=== PATIENT | female | born 1940 | race Caucasian/White ===

== ENCOUNTER 2025-06-24 13:45 | Inpatient (IN) | payer MEDICARE, SELFPAY ==
[2025-06-24 13:48] VITALS: BP 184/96; PULSE 69; RESP 17; TEMP 37.1; O2SAT 92; BMI 22.3
--- NOTE | 2025-06-24 13:48 | XR_ITS ---
WS: [id number] Exam: XR chest 1V portable [id number] Date/Time of Exam: 06/24/2025 2:02 PM Reason For Exam: presurgical workup No priors. The lungs are fully expanded and clear. Normal cardiomediastinal silhouette for technique. Bony structures are intact. XR/XR chest 1V portable [id number] IMPRESSION: 1. No acute cardiopulmonary finding.
--- NOTE | 2025-06-24 13:48 | XR_ITS ---
WS: [id number] Exam: XR hip LT 2-3V wo/w pel* [id number] Date/Time of Exam: 06/24/2025 2:03 PM Reason For Exam: fall, left hip pain. with pelvis Comminuted intertrochanteric fracture of the LEFT hip noted with coxa vera deformity. Moderate degenerative narrowing of the joint compartment. Normal soft tissues. The pelvis is intact as visualized. XR/XR hip LT 2-3V wo/w pel* [id number] IMPRESSION: 1. Comminuted intertrochanteric fracture of the LEFT hip with coxa vera deformi ty.
--- NOTE | 2025-06-24 13:48 | ECG_ITS ---
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: : 1940 Requested By: Asiya Bravo Order Number: [id number] MD: LIBBY LUIS Measurements Intervals [place] Rate: 76 P: 42 MS: 185 QRS: -34 QRSD: 110 T: 2 QT: 424 QTc: 479 Interpretive Statements SINUS RHYTHM LEFT AXIS DEVIATION [QRS AXIS < -30] LEFT VENTRICULAR HYPERTROPHY AND ST-T CHANGE [VOLTAGE CRITERIA PLUS ST/T ABNORMALITY] POSSIBLE ANTERIOR MYOCARDIAL INFARCTION , OF INDETERMINATE AGE [30 ms Q WAVE IN V3/V4, OR R < 0.2 mV IN V4] No previous ECG available for comparison Electronically Signed On 06-26-2025 21:36:27 CDT by LIBBY LUIS [email or web address]
--- NOTE | 2025-06-24 13:48 | W.ED.FALL ---
HPI - Fall General: Chief Complaint: Extremity Injury, Lower Stated Complaint: FALL Time Seen by Provider: 06/24/25 13:46 History of Present Illness: 85-year-old female who presents to the emergency room by ambulance from home with left hip pain after a fall during the night. She tripped and fell. She was not able to get up and family found her this afternoon. No head injury. No anticoagulation. No loss of consciousness. No neck pain. No chest pain. No abdominal pain. She says she is kind of sore all over from when she twisted when she fell. She has obvious shortening and rotation of the left leg with pain with any movement. She was recently diagnosed with COVID. She is currently on Bactrim and dexamethasone. Related Data Home Medications ?Medication ?Instructions ?Recorded ?Confirmed Arnica [place] 30x 2 tab PO Q6H PRN Pain 06/24/25 06/24/25 Arnicare Pain Reliver 2 tab PO Q6H PRN Pain 06/24/25 06/24/25 albuterol sulfate 90 mcg/actuation 2 puff inhalation Q6H PRN 06/24/25 06/24/25 aerosol inhaler Shortness Of Breath dexamethasone 4 mg tablet 4 mg PO DAILY x5d 06/24/25 06/24/25 sulfamethoxazole 800 1 tab PO BID 06/24/25 06/24/25 mg-trimethoprim 160 mg tablet (Bactrim DS) Allergies Allergy/AdvReac Type Severity Reaction Status Date / Time No Known Allergies Allergy Verified 06/24/25 14:20 Review of Systems Narrative: Constitutional symptoms: Negative except as documented in HPI. Skin symptoms: Negative except as documented in HPI. Eye symptoms: Negative except as documented in HPI. ENMT symptoms: Negative except as documented in HPI. Respiratory symptoms: Negative except as documented in HPI. Cardiovascular symptoms: Negative except as documented in HPI. Gastrointestinal symptoms: Negative except as documented in HPI. Genitourinary symptoms: Negative except as documented in HPI. Musculoskeletal symptoms: Negative except as documented in HPI. Neurologic symptoms: Negative except as documented in HPI. Psychiatric symptoms: Negative except as documented in HPI. Endocrine symptoms: Negative except as documented in HPI. Physical Exam Narrative: EXAM NARRATIVE: General: Alert, no acute distress. Skin: Warm, dry. Head: Normocephalic, atraumatic. Neck: Supple, trachea midline. Eye: Extraocular movements are intact. Ears, nose, mouth and throat: mucosa moist. Cardiovascular: Regular, Normal peripheral perfusion. Respiratory: Lungs are clear to auscultation, respirations are non-labored, breath sounds are equal, Symmetrical chest wall expansion. Gastrointestinal: Soft, Nontender, Non distended Musculoskeletal: Shortening and outward rotation of the left leg with pain at the hip with any movement. Neurological: Alert and oriented, No focal neurological deficit observed. Psychiatric: Cooperative, appropriate mood & affect. Course Vital Signs: Vital signs: Vital Signs Temperature 98.8 F 06/24/25 13:48 Pulse Rate 69 06/24/25 13:48 Respiratory Rate 19 H 06/24/25 14:36 Blood Pressure 184/96 06/24/25 13:48 Pulse Oximetry 96 06/24/25 14:36 Oxygen Delivery Me thod Room Air 06/24/25 13:48 MDM - Fall Medical Decision Making Medical decision making: Differential diagnosis for patient with fall and hip pain with deformity including but not limited to and based on the above HPI, review of systems and physical exam: Hip fracture, femur fracture, pelvic fractures including pubic rami and acetabular fractures, hip strain, hip contusion. - Workup: - Hip films ordered to evaluate above. - also presurgical work up done. EKG, Chest xray and lab work Chest x-ray: No acute process. No infiltrate. No pneumothorax. This was reviewed and interpreted by myself the emergency room physician. I also reviewed the radiology report. X-ray of the left hip and pelvis: Comminuted intertrochanteric fracture of the left hip. This was reviewed and interpreted by myself the emergency room physician. I also reviewed the radiology report. EKG: Time 1445. Rate 76. Normal sinus rhythm, nonspecific ST changes, no ectopy, normal OH & QRS intervals, This was reviewed and interpreted by myself the ER physician at 1450 Lab Review: Laboratory results were reviewed and interpreted by myself the emergency room physician. No leukocytosis. No anemia. No renal failure. Urinalysis is pending. Consultation: I spoke with Dr. Packer who recommends admission to the hospitalist service. Consultation: I spoke with Dr. Pena who is on-call for the hospitalist service who agrees to admission I reviewed the patient's medical record. Patient has no previous visits to this hospital. Reexamination: Patient remained stable. No increased work of breathing. No altered mental status. No focal motor deficits. Assessment and plan: Hip fracture Fall ?Normal saline bolus, IV morphine, IV Zofran ?Serrano catheter was placed. - Discharged home - Discussed plan with patient. Answered any questions. - Evaluation and treatment of this problem were appropriate in the emergency setting. Lab Data 06/24/25 14:24 06/24/25 14:24 Radiology Impressions Chest X-Ray 06/24/25 13:48 IMPRESSION: 1. No acute cardiopulmonary finding. Hip/Pelvis X-Ray 06/24/25 13:48 IMPRESSION: 1. Comminuted intertrochanteric fracture of the LEFT hip with coxa vera deformity. Laboratory Results WBC 7.17 10^3/uL (3.29-11.43) 06/24/25 14: RBC 4.35 10^6/uL (3.85-5.65) 06/24/25 14:24 Hgb 12.60 g/dL (11.27-16.99) 06/24/25 14:24 Hct 37.6 % (36-47) 06/24/25 14:24 MCV 86.4 fl (85-98) 06/24/25 14:24 MCH 29.0 pg (27-33) 06/24/25 14:24 MCHC 33.5 g/dL (30-55) 06/24/25 14:24 RDW 12.6 % (12.1-15.1) 06/24/25 14:24 Plt Count 185 10^3/cmm (157-399) 06/24/25 14:24 MPV 9.3 fL (7.4-10.4) 06/24/25 14:24 Neut % (Auto) 84.7 % 06/24/25 14:24 Lymph % (Auto) 6.8 % 06/24/25 14:24 [place] % (Auto) 8.1 % 06/24/25 14:24 Eos % (Auto) 0.0 % 06/24/25 14:24 Baso % (Auto) 0.1 % 06/24/25 14:24 Neut # (Auto) 6.07 10^3/uL (1.8-7.7) 06/24/25 14:24 Lymph # (Auto) 0.5 10^3/uL (0.8-4.8) L 06/24/25 14:24 [place] # (Auto) 0.6 10^3/uL (0.2-0.9) 06/24/25 14:24 Eos # (Auto) 0.0 10^3/uL (0.0-0.8) 06/24/25 14:24 Baso # (Auto) 0.0 10^3/uL (0.0-0.1) 06/24/25 14:24 Nucleated RBC % (auto) 0 % 06/24/25 14:24 Nucleated RBCs # 0.0 /100WBC 06/24/25 14:24 PT 13.00 SECONDS (12.1-14.9) 06/24/25 14:24 INR 0.92 (0.8-1.2) 06/24/25 14:24 APTT 25.1 SECONDS (23.9-36.7) 06/24/25 14:24 Sodium 138 mmol/L (136-145) 06/24/25 14:24 Potassium 3.9 mmol/L (3.5-5.1) 06/24/25 14:24 Chloride 102 mmol/L (98-107) 06/24/25 14:24 Carbon Dioxide 24 mmol/L (22-29) 06/24/25 14:24 Anion Gap 15.9 (5-19) 06/24/25 14:24 BUN 19 mg/dL (8-23) 06/24/25 14:24 Creatinine 0.8 mg/dL (0.5-0.9) 06/24/25 14:24 GFR Calculation Not Reportable 06/24/25 14:24 Glucose 143 mg/dL (65-115) H 06/24/25 14:24 Calculated Osmolality 291 mOsm/kg (285-295) 06/24/25 14:24 Calcium 8.4 mg/dL (8.5-10.5) L 06/24/25 14:24 Total Bilirubin 0.5 mg/dL (0.15-1.2) 06/24/25 14:24 AST 27 U/L (0-32) 06/24/25 14:24 ALT 18 U/L (0-33) 06/24/25 14:24 Alkaline Phosphatase 70 U/L (35-105) 06/24/25 14:24 Creatine Kinase 318 U/L (26-192) H 06/24/25 14:24 Total Protein 6.5 g/dL (6.6-8.7) L 06/24/25 14:24 Albumin 3.9 g/dL (3.5-5.2) 06/24/25 14:24 Globulin 2.6 g/dL (1.3-4.6) 06/24/25 14:24 All radiology interpretation(s) finalized by discharge Discharge Plan Discharge Patient Disposition: Admitted As Inpatient Clinical Impression: Closed hip fracture, Fall Condition: Stable Coding Level of Care Code ED Pole Classifier for Elvira Briceño
[2025-06-24 14:32] LABS: Hematocrit 37.6 % (36-47); Hemoglobin 12.60 g/dL (11.27-16.99); Mean Corpuscular HGB Conc 33.5 g/dL (30-55); Mean Corpuscular Hemoglobin 29.0 pg (27-33); Mean Corpuscular Volume 86.4 fl (85-98); Nucleated Red Blood Cells % 0 %; Platelet Count 185 10^3/cmm (157-399); Red Blood Count 4.35 10^6/uL (3.85-5.65); White Blood Count 7.17 10^3/uL (3.29-11.43)
[2025-06-24 14:36] VITALS: RESP 19; O2SAT 96
[2025-06-24] MEDS: morphine 4 mg/mL SDV 1 mL IVP (14:36)
[2025-06-24] MEDS: ondansetron 2 mg/ML SDV 2 mL 4 MG IVP (14:36)
--- NOTE | 2025-06-24 14:40 | PC.PHAR ---
Addendum entered by Joceline Chisholm 06/24/25 14:42: Arnica [place] 30x and Arnicare pain relief are Plant based natural pain relievers that are tablets or pellets containing Croscarmellose Sodium, Lactose, and Magnesium Stearate. Pill cards are in the room with 2 rx bottles and albuterol inhaler. Original Note: Pascual Guthrie Mo states pt has rx for Paxlovid but is uninsured and could not afford to pick it up.
[2025-06-24 14:51] LABS: INR 0.92 (0.8-1.2); Prothrombin Time 13.00 SECONDS (12.1-14.9)
[2025-06-24 14:53] LABS: Partial Thromboplastin Time 25.1 SECONDS (23.9-36.7)
[2025-06-24 14:58] LABS: Alanine Aminotransferase 18 U/L (0-33); Albumin Level 3.9 g/dL (3.5-5.2); Alkaline Phosphatase 70 U/L (35-105); Anion Gap 15.9 (5-19); Aspartate Amino Transferase 27 U/L (0-32); Blood Urea Nitrogen 19 mg/dL (8-23); Calcium 8.4 mg/dL (8.5-10.5); Carbon Dioxide 24 mmol/L (22-29); Chloride 102 mmol/L (98-107); Creatinine Clr Calc Pharmacy 46.6140; Globulin 2.6 g/dL (1.3-4.6); Glucose 143 mg/dL (65-115); Osmolality Calculated 291 mOsm/kg (285-295); Potassium 3.9 mmol/L (3.5-5.1); Sodium 138 mmol/L (136-145); Total Protein 6.5 g/dL (6.6-8.7)
[2025-06-24 15:00] VITALS: BP 166/92; PULSE 70; O2SAT 92
--- NOTE | 2025-06-24 15:14 | PM.HP ---
Providers/Chief Complaint Admitting Physician: Dr. Pena Chief Complaint: FALL History of Present Illness Arcelia Peterson is a 85 year old female presenting after fall with hip fracture. Per son, she has fallen 3 times since Saturday. She was checked out in the ER on the most recent occasion, no fractures. She was found to be COVID positive at that time. Unclear why this was tested. She is asymptomatic. She was started on oral dexamethasone and given bactrim, the son is unclear what infection this was given for. She was offered paxlovid but declined because of expense. On this occasion, she was going to bed and leaned up on the bed, slipped and fell on her hip. Her son examined her and brought her to the ER for possible broken hip which was confirmed on scan. She is admitted for hip fracture currently. Review of Systems Const: Denies: fever(s), chills or body aches Eyes: Denies: change in vision ENMT: Denies: throat pain or mouth pain Card: Denies: chest pain, palpitations or lightheadedness Resp: Denies: dyspnea, productive cough, wheezing or chest congestion GI: Denies: abdominal pain, nausea or vomiting : Denies: flank pain, difficulty voiding, dysuria, urinary frequency or urinary urgency Musc: Reports: extremity pain Skin/Breast: Denies: rash or pruritus Neuro: Denies: headache(s), numbness in extremities or lack of coordination Psych: Denies: anxiety or depression Medications/Allergies Home Medications ?Medication ?Instructions ?Recorded ?Confirmed ?Last Taken ?Type Arnica [place] 30x 2 tab PO Q6H PRN Pain 06/24/25 06/24/25 Unknown History Arnicare Pain Reliver 2 tab PO Q6H PRN Pain 06/24/25 06/24/25 Unknown History albuterol sulfate 90 mcg/actuation 2 puff inhalation Q6H PRN 06/24/25 06/24/25 06/23/25 History aerosol inhaler Shortness Of Breath dexamethasone 4 mg tablet 4 mg PO DAILY x5d 06/24/25 06/24/25 06/23/25 History sulfamethoxazole 800 1 tab PO BID 06/24/25 06/24/25 06/23/25 History mg-trimethoprim 160 mg tablet (Bactrim DS) Allergies Allergy/AdvReac Type Severity Reaction Status Date / Time No Known Allergies Allergy Verified 06/24/25 14:20 PFSH Acute PFSH: Medical History (Updated 06/24/25 @ 15:22 by Óscar Pena MD) Hypertension Stroke Family History (Updated 06/24/25 @ 15:24 by Óscar Pena MD) Mother Stroke Heart disease Father Lymphoma Social History (Updated 06/24/25 @ 15:24 by Óscar Pena MD) Smoking and tobacco/nicotine status: former use of tobacco/nicotine Alcohol intake: current Alcohol intake frequency: 0-2 Drinks per Day Substance/Drug Use: never Vitals/I&O/Wt Last Vital Signs Temp 98.8 F 06/24/25 13:48 Pulse 69 06/24/25 13:48 Resp 19 H 06/24/25 14:36 BP 184/96 06/24/25 13:48 Pulse Ox 96 06/24/25 14:36 O2 Del Method Room Air 06/24/25 13:48 Weight last 48 hrs Weight 58.967 kg Physical Exam Const: COMMON NORMALS: no acute distress, average body habitus and patient oriented x3 HENMT: COMMON NORMALS: normocephalic and atraumatic Eye: COMMON NORMALS: Equal, round and reactive pupils present, EOMs intact bilaterally and no papilledema Neck/C-Spine: COMMON NORMALS: full ROM and no lymphadenopathy Resp: COMMON NORMALS: normal respiratory effort, No retractions and clear to auscultation bilaterally Cardio: COMMON NORMALS: regular rate, regular rhythm, S1 normal heart sound present and S2 normal heart sound present GI: COMMON NORMALS: Soft to palpation, non-tender and No hepatosplenomegaly present Extremity: NARRATIVE EXTREMITY EXAM: left hip reduced ROM 2/2 pain Neuro: COMMON NORMALS: patient oriented x3 and CN's II-XII intact bilaterally Skin: COMMON NORMALS: no rashes or lesions noted, no wounds and turgor normal Urinary Catheter Management: Serrano: Cath Placed During This Visit: yes Urinary Catheter Date of Insertion: 06/24/25 Urinary Catheter Time of Insertion: 14:57 Data 06/24/25 14:24 06/24/25 14:24 A&P Assessment and plan 1. Fall: 2. Closed hip fracture: Plan: 84 year old female presenting with mechanical fall resulting in left hip fracture. Orthopedics consulted. Left hip fracture - mgmt per ortho - pain control - antiemetic Recent covid - found on lab, patient is asymptomatic. - can stop dexamethasone and bactrim - she does not use Oxygen at home, has inhaler on NOV but no history of lung disease, former smoker - cont. supportive treatment as needed. - currently afebrile, no leukocytosis. - UA clear - Chext xray clear HTN - patient not on any medications currently 2/2 multiple allergies and sensitivities. Diet: regular, NPO after midnight for possible procedure PPx: SCDs. AC held for procedure. Disposition - full code - bedrest until cleared by ortho - PT/OT/CM for discharge planning PDMP PDMP Reviewed: Not Reviewed Attestations Medical Necessity Statement*: Anticipate > 2 midnights for hip fracture Time Spent in Patient Care: 16 - 35 minutes (>than 50% of time spent in counselling and/or direct pt care on unit). Coding Level of Care Code Acute Code for Chg Fwd Diagnoses Fall W19.XXXA Closed hip fracture S72.009A
[2025-06-24 15:27] LABS: Glucose Urine UA Negative (Normal); Nitrate Urine Negative (Negative); Specific Gravity, Urine 1.023 (1.005-1.030)
--- NOTE | 2025-06-24 15:32 | PC.NURSE ---
IV PLACED IN LEFT AC BY EMS INFILTRATED. IV REMOVED, PRESSURE DRESSING APPLIED. NEW IV STARTED BY THIS NURSE.
--- NOTE | 2025-06-24 16:35 | PM.CONSULT ---
Providers/Reason For Consult Consulting Physician/Specialty*: Hospitalist Reason for Consult*: Left intertrochanteric hip fracture History of Present Illness History of Present Illness Arcelia Peterson is a 84 year old female with a history of 3 strokes had a fall last night sustained a left intertrochanteric hip fracture. I was consulted to evaluate the hip. Review of Systems Const: Denies: fever(s), chills or body aches Eyes: Denies: change in vision ENMT: Denies: throat pain or mouth pain Card: Denies: chest pain, palpitations or lightheadedness Resp: Denies: dyspnea, productive cough, wheezing or chest congestion GI: Denies: abdominal pain, nausea or vomiting : Denies: flank pain, difficulty voiding, dysuria, urinary frequency or urinary urgency Musc: Reports: extremity pain Skin/Breast: Denies: rash or pruritus Neuro: Denies: headache(s), numbness in extremities or lack of coordination Psych: Denies: anxiety or depression Medications/Allergies Home Medications ?Medication ?Instructions ?Recorded ?Confirmed ?Last Taken ?Type Arnica [place] 30x 2 tab PO Q6H PRN Pain 06/24/25 06/24/25 Unknown History Arnicare Pain Reliver 2 tab PO Q6H PRN Pain 06/24/25 06/24/25 Unknown History albuterol sulfate 90 mcg/actuation 2 puff inhalation Q6H PRN 06/24/25 06/24/25 06/23/25 History aerosol inhaler Shortness Of Breath dexamethasone 4 mg tablet 4 mg PO DAILY x5d 06/24/25 06/24/25 06/23/25 History sulfamethoxazole 800 1 tab PO BID 06/24/25 06/24/25 06/23/25 History mg-trimethoprim 160 mg tablet (Bactrim DS) Allergies Allergy/AdvReac Type Severity Reaction Status Date / Time No Known Allergies Allergy Verified 06/24/25 14:20 PFSH Acute PFSH: Medical History (Updated 06/24/25 @ 15:22 by Óscar Pena MD) Hypertension Stroke Family History (Updated 06/24/25 @ 15:24 by Óscar Pena MD) Mother Stroke Heart disease Father Lymphoma Social History (Updated 06/24/25 @ 15:24 by Óscar Pena MD) Smoking and tobacco/nicotine status: former use of tobacco/nicotine Alcohol intake: current Alcohol intake frequency: 0-2 Drinks per Day Substance/Drug Use: never Vitals/I&O/Wt Last Vital Signs Temp 98.8 F 06/24/25 13:48 Pulse 70 06/24/25 15:00 Resp 19 H 06/24/25 14:36 BP 166/92 06/24/25 15:00 Pulse Ox 92 06/24/25 15:00 O2 Del Method Nasal Cannula 06/24/25 15:00 O2 Flow Rate 2 06/24/25 15:00 Weight last 48 hrs Weight 130 lb Physical Exam Narrative: Alert and oriented x 3 Head is normocephalic atraumatic Respirations are intact No evidence of any rashes or infection Left leg shortened externally rotated Urinary Catheter Management: Serrano: Cath Placed During This Visit: yes Urinary Catheter Date of Insertion: 06/24/25 Urinary Catheter Time of Insertion: 14:57 Data 06/24/25 14:24 06/24/25 14:24 A&P Assessment and plan 1. Closed hip fracture: Patient has a left intertrochanteric hip fracture. Plan at this point is to do a left hip nail tomorrow. PDMP PDMP Reviewed: Not Reviewed Coding Level of Care Code Acute Code for Chg Fwd Diagnoses Closed hip fracture S72.009A
[2025-06-24 16:50] VITALS: BP 165/110; PULSE 70; O2SAT 97
[2025-06-24 17:12] VITALS: BMI 27.9
[2025-06-24 17:26] VITALS: BP 173/92; PULSE 70; RESP 16; TEMP 36.4; O2SAT 93
[2025-06-24 19:42] VITALS: BP 137/78; PULSE 72; RESP 16; TEMP 36.6; O2SAT 92
[2025-06-25] VITALS (17 sets, daily range): BP systolic 108–167; BP diastolic 68–133; PULSE 63–94; RESP 10–21; TEMP 36.4–37; O2SAT 90–99; BMI 27.7
[2025-06-25 04:01] LABS: Hematocrit 34.7 % (36-47); Hemoglobin 11.50 g/dL (11.27-16.99); Mean Corpuscular HGB Conc 33.1 g/dL (30-55); Mean Corpuscular Hemoglobin 29.1 pg (27-33); Mean Corpuscular Volume 87.8 fl (85-98); Nucleated Red Blood Cells % 0 %; Platelet Count 169 10^3/cmm (157-399); Red Blood Count 3.95 10^6/uL (3.85-5.65); White Blood Count 5.78 10^3/uL (3.29-11.43)
[2025-06-25 04:24] LABS: Anion Gap 14.0 (5-19); Blood Urea Nitrogen 22 mg/dL (8-23); Calcium 8.1 mg/dL (8.5-10.5); Carbon Dioxide 25 mmol/L (22-29); Chloride 105 mmol/L (98-107); Creatinine Clr Calc Pharmacy 46.6514; Glucose 102 mg/dL (65-115); Osmolality Calculated 294 mOsm/kg (285-295); Potassium 4.0 mmol/L (3.5-5.1); Sodium 140 mmol/L (136-145)
[2025-06-25] MEDS: HYDROcodone-acetaminophen 5-325 mg Tablet 1 TAB PO (10:41)
--- NOTE | 2025-06-25 11:15 | PC.OT ---
OT evaluation orders received; pt is on hold today due to having hip nail procedure; will attempt OT evaluation again tomorrow.
--- NOTE | 2025-06-25 13:51 | P.PN_ITS ---
Subjective 2 Subjective: No new issues. Vitals/I&O/Wt Last Vital Signs Temp 98.0 F 06/25/25 13:48 Pulse 67 06/25/25 13:48 Resp 18 06/25/25 13:48 BP 130/68 06/25/25 13:48 Pulse Ox 90 06/25/25 13:48 O2 Del Method Room Air 06/25/25 13:48 O2 Flow Rate 2 06/24/25 15:00 06/24/25 06/25/25 06/25/25 22:59 06:59 14:59 Intake Total 1120 / 1120 Output Total 550 / 550 Balance 1120 / 1120 -550 / 570 Weight last 48 hrs Weight 73.255 kg Weight 73.936 kg Weight 58.967 kg Physical Exam 2 Narrative: Physical Exam Const: no acute distress, average body habi tus and patient or iented x3 HENMT: normocephalic and atraumatic Eye: Equal, round and r eactive pupils pre sent, EOMs intact bilaterally Neck/C-Spine: full ROM and no ly mphadenopathy Resp: normal respiratory effort, No retrac tions and clear to auscultation bila terally Cardio: regular rate, regu lar rhythm, S1/S2 normal GI: Soft to palpation, non-tender and No hepatosplenomegal y present Extremity: left hip reduced R OM 2/2 pain Neuro: patient oriented x 3 and CN's II-XII intact bilaterally Skin: no rashes or lesio ns noted, no wound s and turgor tin l Urinary Catheter Management: Serrano: Cath Placed During This Visit: yes Reason for Continuing Indwelling Catheter: Required Immobilization for Trauma or Surgery or Anesthesia Urinary Catheter Date of Insertion: 06/24/25 Urinary Catheter Time of Insertion: 14:57 Data 06/25/25 03:35 06/25/25 03:35 A&P Assessment and plan 1. Closed hip fracture: 2. Fall: Plan: Plan: 84 year old female presenting with mechanical fall resulting in left hip fracture. Orthopedics consulted. Left hip fracture - mgmt per ortho - pain control - antiemetic Recent covid - found on outpatient lab, patient is asymptomatic. - can stop dexamethasone and bactrim - she does not use Oxygen at home, has inhaler on NOV but no history of lung disease, former smoker - cont. supportive treatment as needed. - currently afebrile, no leukocytosis, minimal cough currently. - UA clear - Chest xray clear HTN - patient not on any medications currently 2/2 multiple allergies and sensitivities. Diet: regular, NPO after midnight for possible procedure PPx: SCDs. AC held for procedure. Disposition - full code - bedrest until cleared by ortho - PT/OT/CM for discharge planning PDMP PDMP Reviewed: Not Reviewed Attestations 2 Medical Necessity Statement*: Ongoing inpatient for hip fracture. Time Spent in Patient Care: 16 - 35 minutes (>than 50% of time sp ent in counselling and/or direct pt care on unit) . Coding Level of Care Code Acute Code for [facility] Fwd Diagnoses Closed hip fracture S72.009A Fall W19.XXXA
--- NOTE | 2025-06-25 13:52 | ANES.PREANE2 ---
Pre-Anesthetic Assessment Height/Weight: Height 5 ft 4 in Weight 161 lb 8 oz Temp Pulse Resp BP Pulse Ox O2 Del Method O2 Flow Rate 98.0 F 67 18 130/68 90 Room Air 2 06/25/25 13:48 06/25/25 13:48 06/25/25 13:48 06/25/25 13:48 06/25/25 13:48 06/25/25 13:48 06/24/25 15:00 Preop Diagnosis: Anemia Operation Date: 06/25/25 11:10 Proposed Procedures p Trochanteric Femoral Nail(Left) - Anthony Packer, DO Was Beta Chetna taken within 24 hours: N/A Was Clonidine taken within 24 hours: N/A Last intake: Intake Last Liquid Date 06/24/25 Last Liquid Time 23:50 Last Solid Date 06/24/25 Last Solid Time 17:00 Social No alcohol and No tobacco Exam alert, oriented x 3, clear to auscultation bilaterally and regular rate & rhythm Airway Submandibular: within normal limits Cervical ROM: within normal limits Mallampati: Class III Dentition: full Anesthetic Plan ASA status: 3 Other: Patient experienced hip fracture after falling yesterday. No prior issues with anesthesia Patient has some dementia, patient's son is at bedside and consented Patient was found to be COVID-positive, currently asymptomatic Patient was offered Paxlovid but declined because of expense Labs reviewed from today, hemoglobin 11.5, NA 140, K+ 4.0 Plan for general anesthesia Medications/Allergies Home Medications ?Medication ?Instructions ?Recorded ?Confirmed ?Last Taken ?Type [place] 30x 2 tab PO Q6H PRN Pain 06/24/25 06/24/25 Unknown History [place] Pain Reliver 2 tab PO Q6H PRN Pain 06/24/25 06/24/25 Unknown History albuterol sulfate 90 mcg/actuation 2 puff inhalation Q6H PRN 06/24/25 06/24/25 06/23/25 History aerosol inhaler Shortness Of Breath dexamethasone 4 mg tablet 4 mg PO DAILY x5d 06/24/25 06/24/25 06/23/25 History sulfamethoxazole 800 1 tab PO BID 06/24/25 06/24/25 06/23/25 History mg-trimethoprim 160 mg tablet (Bactrim DS) Allergies Allergy/AdvReac Type Severity Reaction Status Date / Time No Known Allergies Allergy Verified 06/24/25 14:20 Current Medications Generic Name Dose Route Start Last Admin Trade Name Freq PRN Reason Stop Dose Admin Hydrocodone Bitart/Acetaminophen 1 tab 06/24/25 17:11 06/25/25 10:41 Hydrocodone-Acetaminophen 5-325 Mg Tablet PO 1 tab On Hold: 06/25/25 13:45 Q4H PRN Administration Comment: Order held by Process MODERATE TO SEVERE PAIN Transfer [facility] Anesthesia Medical History (Updated 06/24/25 @ 15:22 by Óscar Pena MD) Hypertension Stroke Family History (Updated 06/24/25 @ 15:24 by Óscar Pena MD) Mother Stroke Heart disease Father Lymphoma Social History (Updated 06/24/25 @ 15:24 by Óscar Pena MD) Smoking and tobacco/nicotine status: former use of tobacco/nicotine Alcohol intake: current Alcohol intake frequency: 0-2 Drinks per Day Substance/Drug Use: never Data Anesthesia 06/25/25 03:35 06/25/25 03:35 Short CBC 06/24/25 06/25/25 Range/Units 14:24 03:35 WBC 7.17 5.78 (3.29-11.43) 10^3/uL Hgb 12.60 11.50 (11.27-16.99) g/dL Hct 37.6 34.7 L (36-47) % MCV 86.4 87.8 (85-98) fl Plt Count 185 169 (157-399) 10^3/cmm Neut % (Auto) 84.7 74.7 % Neut # (Auto) 6.07 4.32 (1.8-7.7) 10^3/uL BMP 06/24/25 06/25/25 14:24 03:35 Sodium 138 140 Potassium 3.9 4.0 Chloride 102 105 Carbon Dioxide 24 25 BUN 19 22 Creatinine 0.8 0.9 Glucose 143 H 102 Calcium 8.4 L 8.1 L Cardiac Enzymes 06/24/25 Range/Units 14:24 Creatine Kinase 318 H (26-192) U/L Liver Function 06/24/25 Range/Units 14:24 Total Bilirubin 0.5 (0.15-1.2) mg/dL AST 27 (0-32) U/L ALT 18 (0-33) U/L Alkaline Phosphatase 70 (35-105) U/L Albumin 3.9 (3.5-5.2) g/dL Urine 06/24/25 Range/Units 14:54 Urine Color Yellow (Yellow) Urine Appearance Clear (CLEAR) Urine pH 6.5 (5-7) Ur Specific [place] 1.023 (1.005-1.030) Urine Protein Trace A (Negative) Urine Glucose (UA) Negative (Normal) Urine Ketones Negative (Negative) Urine Nitrate Negative (Negative) Urine Bilirubin Negative (Negative) Ur Leukocyte Esterase Negative (Negative) Urine RBC 0-2 (0-2) /hpf Urine WBC 0-5 (0-5) /hpf Coags 06/24/25 14:24 PT 13.00 INR 0.92 APTT 25.1
[2025-06-25] MEDS: ceFAZolin 2,000 mg SDV 2000 MG IVP ×2 (14:42→21:50)
--- NOTE | 2025-06-25 15:52 | XR_ITS ---
NOTE: Report was unsigned for reason: Order was edited. Original Signature date and time was: 06/28/25 @ 815 WS: [id number] XR hip LT 2-3V wo/w pel* [id number] REASON FOR EXAM: OR PICS FINDINGS: Short intramedullary raffi and large femoral neck nail fixation of previous intertrochanteric/subtrochanteric fracture. Surgical appliances are intact and in proper position and alignment. Fracture fragments are in good apposition and alignment. [facility] XR/XR hip LT 2-3V wo/w pel* [id number] IMPRESSION: Hip fracture with internal fixation without abnormality.
--- NOTE | 2025-06-25 16:04 | PM.OP ---
Operative Report Date of procedure: June 25, 2025 Pre-op diagnosis: Left intertrochanteric hip fracture Post-op diagnosis: same Procedure done: Left intramedullary hip nail Surgeon: Anthony Packer DO Estimated blood loss (mL): 25 Procedure: Left intramedullary hip nail Patient brought the op suite after undergoing anesthesia patient placed in the supine position. All areas of injury well-padded. Patient's prepped and draped in normal sterile fashion. Patient sustained a left intertrochanteric hip fracture. At this point patient was brought onto the fracture table. Fracture was reduced. Locked into position. Next tension was brought to the starting point. Skin incision made proximal to greater trochanter. This pin was inserted. Opening reamer was then inserted. Nail was inserted into the femur. A guidepin was placed up into the center center position of the femoral head. Next the screw was measured to be 805. At this was drilled to 100. At 100 screw was placed and 10 mm of compression were had across the fracture. Attention was then brought to the distal locking screw. The screw was placed with a 35 mm screw locked in position. AP lateral fluoroscopy showed that the hardware and fracture in good position. Wounds were irrigated and closed with Vicryl and elvis. Sterile dressings were applied patient transferred the PACU in stable condition.
[2025-06-26] VITALS (7 sets, daily range): BP systolic 153–188; BP diastolic 77–97; PULSE 72–88; RESP 17–19; TEMP 36.4–36.9; O2SAT 90–95
[2025-06-26 05:12] LABS: Hematocrit 35.8 % (36-47); Hemoglobin 11.50 g/dL (11.27-16.99); Mean Corpuscular HGB Conc 32.1 g/dL (30-55); Mean Corpuscular Hemoglobin 28.6 pg (27-33); Mean Corpuscular Volume 89.1 fl (85-98); Nucleated Red Blood Cells % 0 %; Platelet Count 142 10^3/cmm (157-399); Red Blood Count 4.02 10^6/uL (3.85-5.65); White Blood Count 5.45 10^3/uL (3.29-11.43)
[2025-06-26] MEDS: ceFAZolin 2,000 mg SDV 2000 MG IVP ×2 (05:59→13:56)
[2025-06-26 07:39] LABS: Anion Gap 17.2 (5-19); Blood Urea Nitrogen 21 mg/dL (8-23); Calcium 8.3 mg/dL (8.5-10.5); Carbon Dioxide 23 mmol/L (22-29); Chloride 105 mmol/L (98-107); Creatinine Clr Calc Pharmacy 52.2537; Glucose 131 mg/dL (65-115); Osmolality Calculated 297 mOsm/kg (285-295); Potassium 4.2 mmol/L (3.5-5.1); Sodium 141 mmol/L (136-145)
[2025-06-26] MEDS: HYDROcodone-acetaminophen 5-325 mg Tablet 1 TAB PO (09:22)
--- NOTE | 2025-06-26 12:59 | P.PN_ITS ---
Subjective 2 Subjective: Patient doing well until she ambulated with physical therapy or not today. Serrano catheter is in plan to pull it out after they work with therapy. Vitals/I&O/Wt Last Vital Signs Temp 98.2 F 06/26/25 11:53 Pulse 88 06/26/25 11:53 Resp 18 06/26/25 11:53 BP 167/79 06/26/25 11:53 Pulse Ox 90 06/26/25 11:53 O2 Del Method Room Air 06/26/25 11:53 O2 Flow Rate 2 06/26/25 08:09 06/25/25 06/26/25 06/26/25 22:59 06:59 14:59 Intake Total 1960 / 1960 480 / 480 Output Total 450 / 450 300 / 750 Balance 1510 / 1510 -300 / 1210 480 / 480 Weight last 48 hrs Weight 161 lb 8 oz Weight 163 lb Weight 130 lb Physical Exam 2 Narrative: Dressings clean dry and intact. Patient comfortable in bed no complaints of pain Urinary Catheter Management: Serrano: Cath Placed During This Visit: yes Reason for Continuing Indwelling Catheter: Required Immobilization for Trauma or Surgery or Anesthesia Urinary Catheter Date of Insertion: 06/24/25 Urinary Catheter Time of Insertion: 14:57 Data 06/26/25 04:37 06/26/25 04:37 A&P Assessment and plan 1. Closed hip fracture: Patient is postop day #1 left hip nail Up with physical therapy Weight-bear as tolerated DVT prophylaxis with aspirin Discharge planning PDMP PDMP Reviewed: Not Reviewed Attestations 2 Medical Necessity Statement*: Per primary service Coding Level of Care Code Acute Code for [facility] Fw Diagnoses Closed hip fracture S72.009A
--- NOTE | 2025-06-26 13:25 | P.PN_ITS ---
Subjective 2 Subjective: s/p IM nailing. Vitals/I&O/Wt Last Vital Signs Temp 98.2 F 06/26/25 11:53 Pulse 88 06/26/25 11:53 Resp 18 06/26/25 11:53 BP 167/79 06/26/25 11:53 Pulse Ox 90 06/26/25 11:53 O2 Del Method Room Air 06/26/25 11:53 O2 Flow Rate 2 06/26/25 08:09 06/25/25 06/26/25 06/26/25 22:59 06:59 14:59 Intake Total 1960 / 1960 480 / 480 Output Total 450 / 450 300 / 750 Balance 1510 / 1510 -300 / 1210 480 / 480 Weight last 48 hrs Weight 73.255 kg Weight 73.936 kg Weight 58.967 kg Physical Exam 2 Narrative: Physical Exam Const: no acute distress, average body habitus and patient oriented x3 HENMT: normocephalic and atraumatic Eye: Equal, round and reactive pupils present, EOMs intact bilaterally Neck/C-Spine: full ROM and no lymphadenopathy Resp: normal respiratory effort, No retractions and clear to auscultation bilaterally Cardio: regular rate, regular rhythm, S1/S2 normal GI: Soft to palpation, non-tender and No hepatosplenomegaly present Extremity: left hip reduced ROM 2/2 pain Neuro: patient oriented x 3 and CN's II-XII intact bilaterally Skin: no rashes or lesions noted, no wounds and turgor normal Urinary Catheter Management: Serrano: Cath Placed During This Visit: yes, but has since been removed by the nurse Reason for Continuing Indwelling Catheter: Decision to DC Catheter Urinary Catheter Date of Insertion: 06/24/25 Urinary Catheter Time of Insertion: 14:57 Date Urinary Catheter Removed: 06/26/25 Time Urinary Catheter Discontinued: 13:02 Data 06/26/25 04:37 06/26/25 04:37 A&P Assessment and plan 1. Fall: 2. Closed hip fracture: Plan: 84 year old female presenting with mechanical fall resulting in left hip fracture. Orthopedics consulted. Left hip fracture - mgmt per ortho: s/p IM nailing on 06/25 - pain control - antiemetic Recent covid - found on outpatient lab, patient is asymptomatic. - can stop dexamethasone and bactrim - she does not use Oxygen at home, has inhaler on NOV but no history of lung disease, former smoker - cont. supportive treatment as needed. - currently afebrile, no leukocytosis, minimal cough currently. - UA clear - Chest xray clear HTN - patient not on any medications currently 2/2 multiple allergies and sensitivities. Diet: regular, NPO after midnight for possible procedure PPx: SCDs. AC held for procedure. Disposition - full code - weight-bearing as tolerated - PT/OT/CM for discharge planning PDMP PDMP Reviewed: Not Reviewed Attestations 2 Medical Necessity Statement*: Ongoing inpatient for hip fracture. Time Spent in Patient Care: 16 - 35 minutes (>than 50% of time sp ent in counselling and/or direct pt care on unit) . Coding Level of Care Code Acute Code for Chg Fwd Diagnoses Fall W19.XXXA Closed hip fracture S72.009A
[2025-06-26] MEDS: ondansetron 2 mg/ML SDV 2 mL 4 MG IVP (18:33)
[2025-06-27] VITALS: BP 169/84; PULSE 89; RESP 17; TEMP 37.1; O2SAT 91
[2025-06-27 04:00] VITALS: BP 164/88; PULSE 87; RESP 16; TEMP 36.9; O2SAT 92
[2025-06-27 06:09] LABS: Hematocrit 37.0 % (36-47); Hemoglobin 11.70 g/dL (11.27-16.99); Mean Corpuscular HGB Conc 31.6 g/dL (30-55); Mean Corpuscular Hemoglobin 29.1 pg (27-33); Mean Corpuscular Volume 92.0 fl (85-98); Nucleated Red Blood Cells % 0 %; Platelet Count 148 10^3/cmm (157-399); Red Blood Count 4.02 10^6/uL (3.85-5.65); White Blood Count 6.26 10^3/uL (3.29-11.43)
[2025-06-27 06:36] LABS: Anion Gap 11.8 (5-19); Blood Urea Nitrogen 21 mg/dL (8-23); Calcium 8.3 mg/dL (8.5-10.5); Carbon Dioxide 26 mmol/L (22-29); Chloride 107 mmol/L (98-107); Creatinine Clr Calc Pharmacy 52.7116; Glucose 120 mg/dL (65-115); Osmolality Calculated 296 mOsm/kg (285-295); Potassium 3.8 mmol/L (3.5-5.1); Sodium 141 mmol/L (136-145)
[2025-06-27 07:41] VITALS: BP 185/100; PULSE 87; RESP 18; TEMP 37; O2SAT 90
[2025-06-27 08:07] VITALS: PULSE 87; RESP 18; O2SAT 90
[2025-06-27] MEDS: hyDRALAzine 20 mg/mL INJ 1 mL 10 MG IVP (08:13)
--- NOTE | 2025-06-27 10:21 | PM.DCS ---
Discharge Providers Date of Admission: 06/24/25 17:02 Date of Discharge: June 27, 2025 Attending Provider at Admission: Aakash Patel Attending Provider at Discharge: Óscar Pena MD Diagnoses at Discharge Discharge Diagnosis 1. Fall: 2. Closed hip fracture: Reason for Visit Reason for Visit: FALL Hospital Course Hospital Course 84 year old female presenting with mechanical fall resulting in left hip fracture. Orthopedics consulted. Left hip fracture - mgmt per ortho: s/p IM nailing on 06/25 - pain control - antiemetic Recent covid - found on outpatient lab, patient is asymptomatic. - can stop dexamethasone and bactrim - she does not use Oxygen at home, has inhaler on NOV but no history of lung disease, former smoker - cont. supportive treatment as needed. - currently afebrile, no leukocytosis, minimal cough currently. - UA clear - Chest xray clear HTN - patient not on any medications currently 2/2 multiple allergies and sensitivities. Diet: regular, NPO after midnight for possible procedure PPx: SCDs. AC held for procedure. Disposition - full code - weight-bearing as tolerated - PT/OT/CM for discharge planning, could benefit from inpatient rehab, but patient is refusing. Discharge planning for today with home health. Discussed with son over the phone today. They are setting up home situation so that she will not be home alone, live next to family. Physical Exam Narrative: Physical Exam Const: no acute distress, average body habitus and patient oriented x3 HENMT: normocephalic and atraumatic Eye: Equal, round and reactive pupils present, EOMs intact bilaterally Neck/C-Spine: full ROM and no lymphadenopathy Resp: normal respiratory effort, No retractions and clear to auscultation bilaterally Cardio: regular rate, regular rhythm, S1/S2 normal GI: Soft to palpation, non-tender and No hepatosplenomegaly present Extremity: left hip reduced ROM 2/2 pain Neuro: patient oriented x 3 and CN's II-XII intact bilaterally Skin: no rashes or lesions noted, no wounds and turgor normal Urinary Catheter Management: Serrano: Cath Placed During This Visit: yes, but has since been removed by the nurse Reason for Continuing Indwelling Catheter: Decision to DC Catheter Urinary Catheter Date of Insertion: 06/24/25 Urinary Catheter Time of Insertion: 14:57 Date Urinary Catheter Removed: 06/26/25 Time Urinary Catheter Discontinued: 13:02 Discharge Data Studies Completed and Pending Completed Studies During Hospitalization Category Date Time Status XR chest 1V portable [id number] Stat Exams 06/24/25 13:48 Completed XR hip LT 2-3V wo/w pel* [id number] Stat Exams 06/24/25 13:48 Completed Pending at discharge Category Date Time Status C-arm Fluoroscopy [id number] Routine Exams 06/25/25 14:54 Taken XR hip LT 2-3V wo/w pel* [id number] Routine Exams 06/25/25 15:52 Taken Radiology Impressions Chest X-Ray 06/24/25 13:48 IMPRESSION: 1. No acute cardiopulmonary finding. Laboratory Results WBC 6.26 10^3/uL (3.29-11.43) 06/27/25 05:35 RBC 4.02 10^6/uL (3.85-5.65) 06/27/25 05:35 Hgb 11.70 g/dL (11.27-16.99) 06/27/25 05:35 Hct 37.0 % (36-47) 06/27/25 05:35 MCV 92.0 fl (85-98) 06/27/25 05:35 MCH 29.1 pg (27-33) 06/27/25 05:35 MCHC 31.6 g/dL (30-55) 06/27/25 05:35 RDW 12.8 % (12.1-15.1) 06/27/25 05:35 Plt Count 148 10^3/cmm (157-399) L 06/27/25 05:35 MPV 9.9 fL (7.4-10.4) 06/27/25 05:35 Neut % (Auto) 78.0 % 06/27/25 05:35 Lymph % (Auto) 13.4 % 06/27/25 05:35 [place] % (Auto) 7.8 % 06/27/25 05:35 Eos % (Auto) 0.3 % 06/27/25 05:35 Baso % (Auto) 0.2 % 06/27/25 05:35 Neut # (Auto) 4.88 10^3/uL (1.8-7.7) 06/27/25 05:35 Lymph # (Auto) 0.8 10^3/uL (0.8-4.8) 06/27/25 05:35 [place] # (Auto) 0.5 10^3/uL (0.2-0.9) 06/27/25 05:35 Eos # (Auto) 0.0 10^3/uL (0.0-0.8) 06/27/25 05:35 Baso # (Auto) 0.0 10^3/uL (0.0-0.1) 06/27/25 05:35 Nucleated RBC % (auto) 0 % 06/27/25 05:35 Nucleated RBCs # 0.0 /100WBC 06/27/25 05:35 PT 13.00 SECONDS (12.1-14.9) 06/24/25 14:24 INR 0.92 (0.8-1.2) 06/24/25 14:24 APTT 25.1 SECONDS (23.9-36.7) 06/24/25 14:24 Sodium 141 mmol/L (136-145) 06/27/25 05:35 Potassium 3.8 mmol/L (3.5-5.1) 06/27/25 05:35 Chloride 107 mmol/L (98-107) 06/27/25 05:35 Carbon Dioxide 26 mmol/L (22-29) 06/27/25 05:35 Anion Gap 11.8 (5-19) 06/27/25 05:35 BUN 21 mg/dL (8-23) 06/27/25 05:35 Creatinine 0.7 mg/dL (0.5-0.9) 06/27/25 05:35 GFR Calculation Not Reportable 06/27/25 05:35 Glucose 120 mg/dL (65-115) H 06/27/25 05:35 Calculated Osmolality 296 mOsm/kg (285-295) H 06/27/25 05:35 Calcium 8.3 mg/dL (8.5-10.5) L 06/27/25 05:35 Total Bilirubin 0.5 mg/dL (0.15-1.2) 06/24/25 14:24 AST 27 U/L (0-32) 06/24/25 14:24 ALT 18 U/L (0-33) 06/24/25 14:24 Alkaline Phosphatase 70 U/L (35-105) 06/24/25 14:24 Creatine Kinase 318 U/L (26-192) H 06/24/25 14:24 Total Protein 6.5 g/dL (6.6-8.7) L 06/24/25 14:24 Albumin 3.9 g/dL (3.5-5.2) 06/24/25 14:24 Globulin 2.6 g/dL (1.3-4.6) 06/24/25 14:24 Urine Color Yellow (Yellow) 06/24/25 14:54 Urine Appearance Clear (CLEAR) 06/24/25 14:54 Urine pH 6.5 (5-7) 06/24/25 14:54 Ur Specific [place] 1.023 (1.005-1.030) 06/24/25 14:54 Urine Protein Trace (Negative) A 06/24/25 14:54 Urine Glucose (UA) Negative (Normal) 06/24/25 14:54 Urine Ketones Negative (Negative) 06/24/25 14:54 Urine Blood Negative (Negative) 06/24/25 14:54 Urine Nitrate Negative (Negative) 06/24/25 14:54 Urine Bilirubin Negative (Negative) 06/24/25 14:54 Urine Urobilinogen 1.0 mg/dL (Negative) 06/24/25 14:54 Ur Leukocyte Esterase Negative (Negative) 06/24/25 14:54 Urine RBC 0-2 /hpf (0-2) 06/24/25 14:54 Urine WBC 0-5 /hpf (0-5) 06/24/25 14:54 Ur Squamous Epith Cells 0-5 /hpf (0-5) 06/24/25 14:54 Amorphous Sediment Not Reportable 06/24/25 14:54 Urine Bacteria None seen /hpf (NONE) 06/24/25 14:54 Hyaline Casts 1.65 /lpf 06/24/25 14:54 Vitals Last Vital Signs Temp 98.6 F 06/27/25 07:41 Pulse 87 06/27/25 08:07 Resp 18 06/27/25 08:07 BP 185/100 06/27/25 07:41 Pulse Ox 90 06/27/25 08:07 O2 Del Method Room Air 06/27/25 08:07 O2 Flow Rate 2 06/26/25 08:09 Discharge Plan Discharge Patient Disposition: Home Health Service Condition: Stable Prescriptions: New hydrocodone-acetaminophen 5-325 mg Tablet 1 tab PO Q4H PRN (Reason: Moderate To Severe Pain) Qty: 14 0RF Continued albuterol sulfate 90 mcg/actuation Hfa Aerosol Inhaler 2 puff INHALATION Q6H PRN (Reason: Shortness Of Breath) Beatrice Jesus 30x 2 tab PO Q6H PRN (Reason: Pain) [place] Pain Reliver 2 tab PO Q6H PRN (Reason: Pain) Discontinued sulfamethoxazole-trimethoprim [Bactrim DS] 800-160 mg Tablet 1 tab PO BID dexamethasone 4 mg Tablet 4 mg PO 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 Packer. You had a left hip fracture. You were treated for this injury with left hip nail. You may resume you normal diet (including any special diets as directed by your primary doctor) as well as your home medications. You should follow up with you primary doctor if you have any questions regarding medication you took prior to your stay in the hospital. You may take your pain medication as prescribed. After the first few days, take your pain medication as needed. Do not drive or drink alcohol while taking your pain medication. Your injury may increase your risk of developing a blood clot,or DVT, in your arm or leg. This could potentially dislodge and travel to your lungs and become a life threatening condition called apulmonary embolus,or PE. You have been prescribed aspirin to be taken to prevent this. Frequent movement of the legs will also help prevent this from occurring. If you develop any new or worsening cough, chestpain, bloody sputum or shortness of breath, call 911 or go to the EmergencyRoom. Always keep your surgical incision/dressing clean and dry. If you experience increasing pain at your incision site, redness, swelling, increasing discharge, foul odors, or fevers (greater than 100.4), night sweats or chills you should call the office at the above number. If you feel this is an emergency you should be evaluated in the Emergency Department of a nearby hospital. Orthopedic Patient Instructions Summary: Weight Bearing: As tolerated Activity: As tolerated. Diet: Regular. Wound Care: Keep dressing clean and dry. Anticoagulation: Aspirin Pain Medication: Take only as needed. Ice, rest and elevation will be of great benefit. Please plan to follow-up wlth Dr Packer in 2 weeks. You will need to call the clinic [phone] to schedule this visit. Thank you far allowing me to participate in your care. Do not hesitate to call the office with any questions or concerns. Discharge Attestations Time Spent in Discharge Care*: greater than 30 min Specific Discharge Activities: educating patient, educating and/or supporting family/caregiver, discussing with pcp/other providers, discussing with field nurse case manager/social workers/dc planners, documenting/other paperwork and evaluating patient/reviewing data Quality Metrics Clinical Quality Measures [ No reported AMI, CVA or VTE this stay] Coding Level of Care Code Acute Code for g Fwd Diagnoses Fall W19.XXXA Closed hip fracture S72.009A
[2025-06-27 11:37] VITALS: BP 184/99; PULSE 87; RESP 16; TEMP 36.8; O2SAT 90
== END 2025-06-27 13:20 | disposition home or self-care (01) | DRG 482 ==
LOC: ER 15:25 → MEDSURG 17:05
PROVIDERS: Orthopaedic Surgery; Admitting Provider Internal Medicine; Emergency Provider Emergency Medicine; Visit Provider Internal Medicine
PROC: 0QS706Z Reposition Left Upper Femur with Intramedullary Internal Fixation Device, Open Approach (ICD-10-PCS; CPT 27245; principal; 2025-06-25 10:40)
DX: S72.142A Displaced intertrochanteric fracture of left femur, initial encounter for closed fracture (principal); W18.30XA Fall on same level, unspecified, initial encounter; Z91.81 History of falling; Y92.003 Bedroom of unspecified non-institutional (private) residence as the place of occurrence of the external cause; I10 Essential (primary) hypertension
CPT/HCPCS: 36415; 51702; 71045; 73502; 76000; 80048; 80053; 81001; 82550; 85025; 85610; 85730; 93005; 96374; 96375; 97161; 97165; 97530; 99285; A4216; C1713; C1776; J0360; J0690; J1100; J2270; J2405; J2704; J3490; J7030; J9999

== ENCOUNTER → 2025-07-01 14:13 | Outpatient (BNVA) | payer MEDICARE, SELFPAY | PROVIDERS: Visit Provider Orthopaedic Surgery | DX: S72.002A Fracture of unspecified part of neck of left femur, initial encounter for closed fracture (principal); X58.XXXA Exposure to other specified factors, initial encounter | CPT/HCPCS: 73502; 99024 ==

== ENCOUNTER → 2025-07-29 10:02 | Outpatient (BNVA) | payer SELFPAY | PROVIDERS: Visit Provider Orthopaedic Surgery | DX: Z98.890 Other specified postprocedural states (principal) | CPT/HCPCS: 73502 ==